=== PATIENT | female | born 1950 | race Caucasian/White ===

== ENCOUNTER → 2021-01-30 12:36 | Outpatient (CLI) | payer MEDICARE, OTHER, SELFPAY ==
--- NOTE | 2021-01-30 12:40 | CT_ITS ---
STUDY: CT LEFT SHOULDER REASON FOR EXAM: Female, 70 years old. PRIMARY OSTEOARTHRITIS,L SHOULDER RADIATION DOSAGE (If Supplied By Facility): CTDIvol = ( 29.55 ) mGy, DLP = ( 643.37 ) mGycm TECHNIQUE: The patient was scanned in a multi detector CT scanner. High resolution transaxial imaging was performed without the administration of intravenous contrast material. Sagittal and coronal images were reconstructed. Individualized dose optimization techniques were used for this CT. COMPARISON: None. FINDINGS: There is severe narrowing of the glenohumeral articulation with bulky osteophyte formation of the medial and inferior aspect of the humeral head as well as several loose bodies of the glenohumeral joint space and cortical spurring glenoid. Prominent enthesopathy of the proximal lateral aspect of the humeral head also noted. No visualized acute fractures. A small glenohumeral joint effusion is present. Normal coracoid process. Normal visualized lateral clavicle. Normal acromioclavicular articulation. There is a Type II morphology (curved), with a neutral orientation. Normal visualized muscles and soft tissue structures. CT/Extremity Upper without Contra IMPRESSION: 1. Severe DJD of the left shoulder joint Electronically Signed: Manuelito Ham MD at 23:50 EDT , Service support ,
== END ==
PROVIDERS: PCP Family Medicine; Referring Provider Specialist; Visit Provider Specialist
DX: M19.012 Primary osteoarthritis, left shoulder (principal)
CPT/HCPCS: 73200

== ENCOUNTER 2022-01-29 12:35 | Emergency (ER) | payer MEDICARE, OTHER, SELFPAY ==
[2022-01-29 12:37] VITALS: BP 134/82; PULSE 84; RESP 16; TEMP 36.2; O2SAT 95; BMI 34.3
--- NOTE | 2022-01-29 12:48 | EDS_ITS ---
HPI History of Present Illness Chief Complaint: Allergic Reaction Informant: patient Onset/Context/Timing Onset: Today Context: Gradual Onset Timing: Continuous Quality: Redness, itching Location: Generalized Worsened by: Nothing Relieved by: Nothing Narrative Narrative: Patient presents with allergic reaction that began today. Patient states she was given a dose of penicillin today at the dentist office. Patient states that while the dentist was working on her teeth she started developing some itching and redness. Patient states this is generalized. Patient denies any difficulty breathing or difficulty swallowing. Patient states she did also get nauseated with it. Patient states she also developed a slight cough. Patient denies any chest pain or palpitations. [facility] Medical History (Updated 01/29/22 @ 14:[address] Yamil Owens DO) HTN (hypertension) Home Medications prednisone 60 mg PO DAILY #15 tablet 01/29/22 [Rx Last Taken Unknown] Allergy/AdvReac Type Severity Reaction Status Date / Time No Known Allergies Allergy Verified 01/29/22 12:36 Surgical History (Updated 01/29/22 @ 12:[address] Yamil Owens DO) Hx of shoulder surgery Social History Smoking Status: Never smoker ROS ROS ED Constitutional Constitutional ED: Denies chills or fever(s) Eyes Eyes: Denies blurry vision or change in vision ENT ENT ED: Denies rhinorrhea or sore throat Cardiovascular Cardiovascular: Denies chest pain or palpitations Respiratory/Chest Respiratory/Chest: Reports cough; Denies dyspnea Gastrointestinal Gastrointestinal: Reports nausea; Denies vomiting Genitourinary Genitourinary ED: Denies dysuria or hematuria Musculoskeletal Musculoskeletal: Denies back pain or neck pain Integumentary Reports rash; Denies abscess Neurologic Neurologic: Denies headache(s) or weakness Allergic/Immunologic Allergic/Immunologic ED: Reports urticaria; Denies mouth swelling or tongue swelling EXAM Physical Exam Const Vital Signs: 01/29/22 12:37 Temperature 97.1 F L Temperature Source Temporal Pulse Rate 84 Respiratory Rate 16 Blood Pressure 134/82 H Blood Pressure Mean 99 Pulse Ox 95 Oxygen Delivery Method Room Air Positive well nourished and well developed General Appearance ED: well developed and NAD HEENT Reports moist mucous membranes Neck supple and no JVD Resp normal respiratory effort and clear to auscultation bilaterally Cardio regular rate, regular rhythm and no murmurs GI normal to inspection, nondistended, normoactive bowel sounds and non-tender Palpation: soft Extremity normal to inspection General Extremety ED: Negative for edema or tenderness General Extremity: Negative for edema Neuro oriented x3, CN's II-XII intact bilaterally and no sensory deficits noted Sensorium / Orientation: alert Motor Exam: strength 5/5 throughout Psych mental status grossly normal Skin Rashes: rashes noted Hives macule Generalized red smooth hives MDM MDM MDM Narrative Medical decision making narrative: Patient was given Benadryl, Pepcid, and Solu- Medrol here. Patient is feeling better on reevaluation. Patient states her itching has resolved. Patient states the erythema is improved. Patient was given a prescription for prednisone. Patient was instructed to follow-up with her primary care physician in 5 to 7 days. Patient understood and was agreeable with the plan. All questions were answered. Discharge Plan Triage Chief Complaint: Allergic Reaction ED Provider: Yamil Owens Dx/Rx/DC Orders Clinical Impression: Allergic reaction caused by a drug Instructions: ED General Allergic Reactions Prescriptions: New prednisone 20 MG tablet 60 mg PO DAILY Qty: 15 RF: 0 Primary Care Provider: Kelvin Matias Referrals: Kelvin Matias MD [Primary Care Provider] - 5-7 Days Disposition Disposition: Home, Self Care
[2022-01-29] MEDS: DiphenhydrAMINE 50 MG/ML Syringe 25 MG IV (13:26)
[2022-01-29] MEDS: MethylPREDNISolone 125 MG/2 ML Vial 60 MG IV (13:27)
[2022-01-29] MEDS: Famotidine 200 MG/20 ML MDV 20 MG in 0.9% Normal Saline (Pres. free 8 ML 300 MG IV (13:44)
[2022-01-29 14:41] VITALS: BP 128/78; PULSE 67; RESP 16; TEMP 36.9; O2SAT 99
== END 2022-01-29 14:52 | disposition home or self-care (01) ==
PROVIDERS: Emergency Provider Emergency Medicine; PCP Family Medicine; Visit Provider Emergency Medicine
DX: T78.40XA Allergy, unspecified, initial encounter (principal); X58.XXXA Exposure to other specified factors, initial encounter
CPT/HCPCS: 96374; 96375; 99284; A4216; J3490

== ENCOUNTER → 2023-02-13 | Outpatient (CLI) | payer MEDICARE, OTHER, SELFPAY ==
--- NOTE | 2023-02-13 14:52 | CT_ITS ---
STUDY: CT SOFT TISSUE NECK WITH CONTRAST REASON FOR EXAM: Female, 72 years old. [employer] RADIATION DOSAGE (If Supplied By Facility): CTDIvol = ( 14.00 ) mGy, DLP = ( 405.64 ) mGycm TECHNIQUE: The patient was scanned in a multi-detector CT scanner. High resolution transaxial imaging was performed following intravenous administration of IV 100mL Isovue-300. Sagittal and coronal images were reconstructed. Individualized dose optimization techniques were used for this CT. COMPARISON: None. FINDINGS: There is a large soft tissue mass involving the right) temporal space extending into the region of the ramus of the right mandible with evidence of a bony destruction. There is also evidence of a enlarged right soft tissue masses suggestive of adenopathy involving the right anterior cervical triangle as well as the perivascular spaces. The masses extend into the right parotid gland. The dominant soft tissue mass in the right infratemporal fossa extending to the region of the right mandibular ramus measures 4 cm x 4.4 cm. Normal visualized nasopharynx. Normal retropharyngeal space. Normal perivertebral space. Normal epiglottis, bilateral vallecula and hypopharynx. The pre-epiglottic and paraglottic adipose spaces are normal. Normal visualized bilateral piriform sinuses, aryepiglottic folds, vocal cords, and arytenoid-cricoid articulations. Normal subglottic trachea. There is a 3.1 cm hypodense nodule in the midportion of the left lobe the thyroid. Normal visualized pulmonary apices. Normal visualized paranasal sinuses. There is multilevel degenerative changes of the cervical spine. CT/Soft Tissue Neck WITH Contrast IMPRESSION: Large soft tissue mass as described involving the right infratemporal region extending into the right side of the neck with destruction of the right mandibular ramus. There is also evidence of a multiple rounded soft tissue masses in the right-sided the neck as described suggestive of metastatic adenopathy. Biopsy recommended. Electronically Signed: Preston Márquez MD at 9:58 EDT ,
[2023-02-13 15:12] LABS: CREATININE FINGERSTICK < 0.9 mg/dL (0.55-1.02); EGFR FINGERSTICK > 60.0000 mL/min (>60)
== END | disposition home or self-care (01) ==
LOC: CT 14:43
PROVIDERS: PCP Family Medicine; Referring Provider Otolaryngology Otolaryngology/Facial Plastic Surgery; Visit Provider Otolaryngology Otolaryngology/Facial Plastic Surgery
DX: K11.5 Sialolithiasis (principal)
CPT/HCPCS: 70491; Q9967; A4216

== ENCOUNTER → 2023-04-03 | Outpatient (CLI) | payer MEDICARE, OTHER, SELFPAY ==
--- NOTE | 2023-04-03 14:34 | ECHOCSONC_ITS ---
Reason For Study: CHEMOTHERAPY Procedure This was a 2D Doppler, Color Flow transthoracic echocardiogram. Myocardial strain analysis was performed in this exam to aid in the assessment of cardiac function. The study was technically difficult. Exam performed in department. Left Ventricle Normal LV size. Left ventricular systolic function is normal. The estimated ejection fraction is 65 %. Stage 1 diastolic dysfunction. No regional wall motion abnormalities noted. Right Ventricle Normal RV size. Normal systolic function. Atria Normal left atrium. Normal right atrium. Mitral Valve There is mild mitral annular calcification. Tricuspid Valve Normal tricuspid valve. Mild tricuspid valve insufficiency. Pulmonary artery systolic pressure is 15 mmHg. Aortic Valve Trisinus/trileaflet aortic valve. Mild focal aortic valve calcification. Pulmonic Valve Normal pulmonic valve. Great Vessels Normal aortic root. Pericardium/Pleural No pericardial effusion. MMode/2D Measurements & Calculations LVIDd: 4.0 cm IVSd: 1.5 cm LVOT diam: 2.0 cm LVIDs: 1.9 cm LVPWd: 0.92 cm LVOT area: 3.1 cm2 RVDd: 3.1 cm FS: 51.2 % Ao root diam: 3.2 cm LAV(MOD-bp): 21.7 ml LVAd ap4: 19.2 cm2 LAV(MOD-bp) Indexed: 12.2 ml/m2 LVLd ap4: 6.3 cm LAV(MOD-sp2): 24.7 ml EDV(MOD-sp4): 47.2 ml LAV(MOD-sp4): 18.0 ml EDV(sp4-el): 49.6 ml LVAs ap4: 9.8 cm2 LVLs ap4: 5.2 cm ESV(MOD-sp4): 15.8 ml ESV(sp4-el): 15.9 ml EF(MOD-sp4): 66.5 % EF(sp4-el): 67.9 % LVAd ap2: 19.8 cm2 SV(MOD-sp4): 31.4 ml SV(MOD-sp2): 32.9 ml LVLd ap2: 6.9 cm EDV(MOD-sp2): 46.0 ml EDV(sp2-el): 48.2 ml LVAs ap2: 9.1 cm2 LVLs ap2: 5.3 cm ESV(MOD-sp2): 13.1 ml ESV(sp2-el): 13.1 ml EF(MOD-sp2): 71.5 % SV(sp4-el): 33.7 ml LA dimension(2D): 3.9 cm LA A4 area: 9.8 cm2 RA A4 area: 10.2 cm2 TAPSE: 1.7 cm Time Measurements MV dec time: 0.27 sec Doppler Measurements & Calculations MV E max jatin: 56.6 cm/sec Lat Peak E' Jatin: 11.0 cm/sec Med Peak E' Jatin: 8.0 cm/sec MV A max jatin: 76.5 cm/sec E/E' lat: 5.1 E/E' med: 7.1 MV E/A: 0.74 Ao V2 max: 143.3 cm/sec LV V1 max: 125.4 cm/sec MV dec slope: 207.9 cm/sec2 Ao max P.2 mmHg LV V1 max P.3 mmHg Ao V2 mean: 97.5 cm/sec LV V1 mean P.8 mmHg Ao mean P.3 mmHg LV V1 mean: 76.7 cm/sec Ao V2 VTI: 25.0 cm LV V1 VTI: 21.5 cm AV (velocity ratio): 0.86 LISHA(I,D): 2.6 cm2 LISHA(V,D): 2.7 cm2 SV(LVOT): 65.7 ml PA V2 max: 92.2 cm/sec TR max jatin: 177.4 cm/sec PA max PG (full): 0.85 mmHg TR max P.6 mmHg ECHO/ONC Echo Complete W/ Contrast Interpretation Summary Normal LV size. Left ventricular systolic function is normal. The estimated ejection fraction is 65 %. There is mild mitral annular calcification. Stage 1 diastolic dysfunction. Pulmonary artery systolic pressure is 15 mmHg. The global longitudinal strain is normal. The global longitudinal strain = -20. 8 % (normal). Ordering Physician: Nancy Segal Referring Physician: MD Kelvin Matias Performed By: Trisha, Deborah, RDCS
== END | disposition home or self-care (01) ==
LOC: CVS 14:31
PROVIDERS: PCP Family Medicine; Referring Provider Internal Medicine Hematology & Oncology; Visit Provider Internal Medicine Hematology & Oncology
DX: Z79.899 Other long term (current) drug therapy (principal); C85.91 Non-Hodgkin lymphoma, unspecified, lymph nodes of head, face, and neck; Z51.81 Encounter for therapeutic drug level monitoring
CPT/HCPCS: 93306; 93356; C8929

== ENCOUNTER 2023-04-15 10:44 | Day surgery (SDC) | payer MEDICARE, OTHER, SELFPAY ==
[2023-04-15] VITALS (7 sets, daily range): BP systolic 84–129; BP diastolic 66–102; PULSE 62–83; RESP 16–18; TEMP 36.7–37; O2SAT 99–100; BMI 30.9
--- NOTE | 2023-04-15 12:20 | HP.PCM_ITS ---
History and Physical Date of Admission: 04/15/23 Date of Service: 04/03/23 MR#: [id number] Acct: [id number] Name: BENJAMIN WADE Rep #: [id number] : 1950 Provider: Dr. Kenzie Castillo MD Age/Sex: 72/F Location: [facility] Status: Signed Intake Vital Signs 03/27/2309:59 04/03/2309:14 Height 5 ft 2 in 5 ft 2 in Weight: 169 lb 2 oz BMI 30.9 BP 123/81 H Blood Pressure Location Rt brachial Position Sitting Respiration 16 Pulse 74 Pulse Source Monitor Temp Source Tympanic Pulse Oximetry (%) 98 Oxygen Delivery Method room air Intake Visit Reasons: PORT PLACEMENT Chief Complaint: port placement Allergies amoxicillin Allergy (Unknown, Verified 04/04/23 08:10) Nausea, lightheadednessPenicillins Allergy (Unknown, Verified 04/04/23 08:10) Nausea, lightheadedness Medications finasteride 5 mg tablet 5 mg PO DAILY 03/26/23 [History Confirmed 04/04/23] hydrochlorothiazide 25 mg tablet 25 mg PO DAILY 03/26/23 [History Confirmed 04/04/23] losartan 50 mg tablet 50 mg PO DAILY 03/26/23 [History Confirmed 04/04/23] biotin 10,000 mcg capsule 10,000 mcg PO DAILY 03/27/23 [History Confirmed 04/04/23] calcium carbonate 1,000 mg-vitamin D3 20 mcg (800 unit) tablet 1 tab PO .QOD 03/27/23 [History Confirmed 04/04/23] clindamycin HCl 300 mg capsule 600 mg PO ONCE PRN SURGERY PROCEDURE 03/27/23 [History Confirmed 04/04/23] cyanocobalamin (vitamin B-12) 1,000 mcg tablet 1,000 mcg PO DAILY 03/27/23 [History Confirmed 04/04/23] iaeqmkrp-dni-bnnww acid 0.4 mg-lycopene 300 mcg-lutein 250 mcg tablet (Complete Multivitamin Adult 50 Plus) 1 tab PO .QOD 03/27/23 [History Confirmed 04/04/23] pyridoxine (vitamin B6) 100 mg tablet (Vitamin B-6) 100 mg PO DAILY 03/27/23 [History Confirmed 04/04/23] [facility] Medical History (Updated 04/04/23 @ 08:20 by Angelica Fuentes) Arthritis Cancer Cystocele, midline Easy bruising Heartburn High cholesterol History of echocardiogram History of pain when walking HTN (hypertension) Lymphoma Mass of right parotid gland Melanoma Non-smoker Parapharyngeal space mass Post-menopausal Postmenopausal atrophic vaginitis Shortness of breath on exertion Urethral caruncle Urgency of urination Uterovaginal prolapse, incomplete Wears glasses Surgical History (Updated 04/04/23 @ 08:20 by Angelica Fuentes) History of surgical removal of skin lesion Hx of colonoscopy Hx of lymph node biopsy Hx of total shoulder replacement Family History Other Colon cancer Emphysema, unspecified Hypertension Lung cancer Social History household members: none Smoking Status: Never smoker alcohol intake: current alcohol intake frequency: holidays/special occasions only Alcohol type: wine substance use type: does not use additional social history: HPI HPI HPI: 72-year-old female presents for port placement due to lymphoma. Plan is for patient to start chemotherapy fairly shortly after getting port placed per Dr. Segal. Patient also states that she would have radiation as well. ROS General General: No weight change, appetite, fatigue, colon cancer, breast cancer or weakness HEENT HEENT: Yes swollen glands; No difficulty swallowing, eye injury, eye surgery or hoarseness Endo Endocrine: No thyroid disease, diabetes mellitus, thyroid cancer, Hair loss, heat intolerance or cold intolerance Skin Skin: No rash or changing moles Breast Breast: No left breast lump, right breast lump, nipple discharge, breast pain, abnormal mammogram, abnormal US or breast enlargement Musc Musculoskeletal: Yes arthritis and gout; No back problems, rheumatoid arthritis or joint pain Cardio Cardiovascular: Yes high blood pressure; No murmur, pacemaker, heart disease, atrial fibrillation, heart attack, heart stent, palpitations, shortness of breat with exertion or chest pain Psych Psychiatric: No depression, anxiety or hearing voices Resp Respiratory: No shortness of breath, No sleep apnea, No cough, No COPD, No asthma, No emphysema and No wheezing Gastro Gastrointestinal: No abdominal pain, No nausea or vomiting, No diarrhea, No constipation, No blood in stool, Yes acid reflux, No hemorrhoids, No ulcers, No gallbladder problem and No black,tarry stools Bryan Hematologic: No blood thinners, No blood disorders, No bleeding, No anemia and No blood clots Neuro Neurologic: No system reviewed and no additional complaints, except as documented, No as per HPI, No abnormal gait, No abnormal hearing, No abnormal movements, No abnormal speech, No behavioral changes, No burning sensations, No confusion, No convulsions, No disequilibrium, No dizziness, No localized weakness, No frequent falls, No headache(s), No lack of coordination, No loss of vision, No memory loss, No numbness, No other visual disturbances, No radicular pain, No restless legs, No sensory deficit, No syncope, No tingling, No tremor(s), No weakness and No other Exam Const General: cooperative, comfortable and no acute distress Neck Other: Right neck incision well-healed Chest Other: Palpation of bilateral upper chest normal Resp Effort & Inspection: normal respiratory effort Cardio Rate: regular rate Assessment and Plan Assessment and Plan (1) Encounter for insertion of tunneled central venous catheter (CVC) with port: Status: Acute (2) Lymphoma: Status: Acute Plan I have discussed above with the patient- Port-a-Cath placement. Left possible right IJ Patient has been counseled as to the risks/benefits of the procedure. I have explained the risks of the surgery, including but not limited to: infection, bleeding, injury to any blood vessels/nerves, injury to lungs (such as pneumothorax or hemothorax and need for chest tube), not having any access, nonfunctioning of port due to thrombosis, infection of port, etc. the patient understands and agrees to proceed. I have answered all the patient's questions to the patient?s satisfaction and the patient has no further questions. Kenzie Castillo M.D. Pager: [phone] [facility] [address] [place] [address], [facility], [address] [place] [address] Office: [phone] Coding Level of Care Code Off vis,new,level 3 Diagnoses Encounter for insertion of tunneled central venous catheter (CVC) with port Z45.2 Lymphoma C85.90 04/04/23 0909 <Electronically signed by Kenzie Castillo MD> Date Kenzie Castillo MD
[2023-04-15] MEDS: Clindamycin 900 MG/50 ML BAG 75 MG IV (12:30)
[2023-04-15] MEDS: Lidocaine 1% /Epi 1:100 (20ml) 20 ML Vial (12:53)
[2023-04-15] MEDS: Bupivacaine Mpf 0.5% 30 ML VIAL (12:53)
--- NOTE | 2023-04-15 13:27 | PCM.OPRPT ---
Report of Operation Date of Procedure: 04/15/23 Pre-Operative Diagnosis: Z45.2, lymphoma Post-Operative Diagnosis: same Surgery/Procedure Performed:: 1. Insert of left IJ Port-A-Cath Use of fluoroscopy Use of ultrasound Surgeon: Kenzie Castillo Type of Anesthesia: General/Supplemental Anesthesiologist: Demario Barakat Special Medications: Clinda 900 mg IV x1 Specimen's removed: None Estimated Blood Loss (mL): < 10 cc Description of Procedure: After informed consent was given, the patient was brought to the operating room and placed in the supine position. Appropriate time out protocol was followed. Patient was then given IV conscious sedation for anesthesia. The patient's left upper chest and neck were then prepped with a surgical skin preparation and sterile surgical drapes were placed. After proper landmarks were ascertained, the skin at the upper left chest area was then infiltrated with 1:1 mixture of 1% lidocaine with epinephrine and 0.5% marcaine. A needle trocar was then inserted into the left internal jugular vein with ultrasound guidance-multiple vessels were viewed with u/s and the left IJ was chosen-- and there was good aspiration of venous blood. A wire was then threaded into the needle trocar and this was visualized under fluoroscopy to ensure that the wire was in the superior vena cava. Once this was done, then the needle trocar was removed. A small skin ismael was made with an 11 blade knife at the wire entrance site. The dilator with the introducer sheath attached was then placed over the wire into the left internal jugular vein via the Seldinger technique and this was visualized under fluoroscopy. The dilator and sheath were in proper position as visualized by fluoroscopy. A subcutaneous pocket was then created caudad to the catheter insertion site. A transverse skin incision was made after the skin and subcutaneous tissues were infiltrated with local anesthetic. Blunt dissection was then used to create a space large enough for placement of the subcutaneous port. The catheter was then tunneled into the subcutaneous pocket. The wire and dilator were then removed. The catheter was then threaded into the introducer sheath and was positioned with its tip at the junction of the superior vena cava and the right atrium as visualized under fluoroscopy. The excess catheter was transected. The catheter was then attached to the subcutaneous port using manufacturers guidelines. The catheter was flushed with a heparin saline mixture prior to placement. Hemostasis was carefully controlled with electrocautery. The port was sutured to the subcutaneous fascia using 2-0 Vicryl suture at two sites. The port was then placed in the subcutaneous pocket. The incision were reapproximated with interrupted subdermal 3-0 vicryl sutures. The skin was reapproximated with 3-0 nylon suture in a interrupted fashion. Steristrips were used for reinforcement of the skin closure at IJ insertion site and a sterile opsite dressings were applied. The patient tolerated the procedure well. Grafts/Implants Used: Bard PowerPort isp M.R.I. 6Fr Lot [id number] Complications none
--- NOTE | 2023-04-15 13:30 | RAD_ITS ---
STUDY: X-RAY CHEST REASON FOR EXAM: Female, 72 years old. Port -- pacu TECHNIQUE: Single AP portable view of the chest. COMPARISON: None. FINDINGS: EKG electrodes are seen. A left-sided Port-A-Cath has been placed with the tip in the midportion of the superior vena cava. Minimal increasing markings at the left lung base suggestive of either linear atelectasis and/or scarring. There is no demonstrated pleural abnormality. Normal size heart. Normal mediastinum and sheree. Normal visualized pulmonary arteries. Normal visualized aortic arch and descending thoracic aorta. There are diffuse degenerative changes of the visualized thoracic spine. The patient is status post left reverse shoulder replacement. Surgical clips are seen in the inferior aspect of the right cervical region. There is no demonstrated abnormality of the visualized soft tissue structures of the upper abdomen. RAD/Chest 1 View (Portable) IMPRESSION: The tip of the left portacatheter is in the midportion of the superior vena cava. Mild increased linear markings at the left lung base suggestive of linear atelectasis and/or scarring. Electronically Signed: Preston Márquez MD at 14:21 EDT ,
--- NOTE | 2023-04-15 14:10 | DCINST_ITS ---
Discharge Instructions Procedure Port-A-Cath Diet Discharge Diet: Light diet - advance as tolerated Activity May shower in (days): 5 (Keep port site clean and dry x5 days. Neck incision okay to get wet after 1 day. Okay to lower shower and upper sponge bath. OR okay to taper off port site with a Ziploc bag to shower) Lifting Restrictions: No lifting > 15 pounds for 3 days with the arm on the side of the port Dressing / Incision Call your doctor if your incision/area has: Continuous Slow Oozing, Sudden Increased Bleeding, Increased Pain/ Swelling, Increased Redness, Foul Smelling Discharge and Swelling at the incision site Call your doctor if you observe: Fever of 101 or Higher Change Dressing in: 2 days (2-3 days- port site; ok to remove neck opsite in 1 day) Follow Up Care Please Follow Up With: Kenzie Castillo MD When: In 10 days for permanent suture removal?call office for appointment Test Results: Test results from this visit will be discussed in further detail at your follow- up appointment, if applicable. Discharge Plan Admission Attending Provider: Kenzie Castillo Primary Care Provider: Kelvin Matias Discharge Orders/Prescriptions Prescriptions: New tramadol 50 mg tablet 50 mg PO Q6H PRN (Reason: pain) Qty: 3 0RF Continued finasteride 5 mg tablet 5 mg PO DAILY hydrochlorothiazide 25 mg tablet 25 mg PO DAILY losartan 50 mg tablet 50 mg PO DAILY biotin 10,000 mcg capsule 10,000 mcg PO DAILY Complete MV Adult 50 Plus 0.4 mg-300 mcg- 250 mcg tablet 1 tab PO .QOD calcium carbonate-vitamin D3 1,000 mg-20 mcg (800 unit) tablet 1 tab PO .QOD ondansetron 8 mg tablet,disintegrating 8 mg PO Q8H PRN (Reason: nausea and vomiting) Qty: 30 2RF prednisone 20 mg tablet 100 mg PO .COMPLEX Qty: 25 5RF Rx Instructions: Take 100 mg orally on days 1-5 of chemotherapy cycle with food allopurinol 300 mg tablet 300 mg PO DAILY Qty: 30 0RF lidocaine-prilocaine 2.5-2.5 % cream 1 applic topical ONCE PRN (Reason: port access) 30 Days Qty: 30 2RF acyclovir 400 mg tablet 400 mg PO BID Qty: 60 1RF Referrals / Follow Up: Kelvin Matias MD [Primary Care Provider] - Disposition Disposition (needs filled in before D/C Order can be placed): Home, Self Care
== END 2023-04-15 14:54 | disposition home or self-care (01) ==
LOC: SDC 10:46 → AC 10:47
PROVIDERS: PCP Family Medicine; Referring Provider Surgery; Visit Provider Surgery
PROC: (CPT 36561; principal; 2023-04-15 12:15)
DX: Z45.2 Encounter for adjustment and management of vascular access device (principal); C85.90 Non-Hodgkin lymphoma, unspecified, unspecified site; I10 Essential (primary) hypertension; Z80.0 Family history of malignant neoplasm of digestive organs; Z79.899 Other long term (current) drug therapy
CPT/HCPCS: 36561; 00532; 71045; 77001; J7120; C1769; J2405

== ENCOUNTER → 2023-05-24 | Outpatient (CLI) | payer MEDICARE, OTHER, SELFPAY ==
--- NOTE | 2023-05-24 10:20 | RAD_ITS ---
CLINICAL HISTORY: Female, 72 years old. Assessment of the left portacatheter. PROCEDURE: Portogram. FLUOROSCOPY TIME (if supplied): (31 seconds) minutes/seconds. 20.79 mGy. 4 spot images were obtained. STERILE BARRIER TECHNIQUE: The following sterile barrier precautions were used during the procedure: hand hygiene; use of 2% chlorhexidine aseptic; use of a cap, mask, sterile gown, sterile gloves, sterile full body drape, and a large sterile sheet. TECHNIQUE: Nonionic contrast was injected into the indwelling portacatheter. The catheter is patent. Free flow of contrast is seen in the superior vena cava. # of Images: 4 RAD/Con Inj Lior Eval CVP Inc Fluro IMPRESSION: Normal portogram. Electronically Signed: Preston Márquez MD at 10:52 EDT ,
[2023-05-24] MEDS: 0.9% Saline Lock 10 ML Syringe IV (10:42)
== END | disposition home or self-care (01) ==
LOC: RAD 10:13
PROVIDERS: PCP Family Medicine; Referring Provider Nurse Practitioner Family; Visit Provider Nurse Practitioner Family
DX: Z95.828 Presence of other vascular implants and grafts (principal); C85.90 Non-Hodgkin lymphoma, unspecified, unspecified site
CPT/HCPCS: 36598; A4216

== ENCOUNTER → 2023-07-01 | Outpatient (CLI) | payer MEDICARE, OTHER, SELFPAY ==
--- NOTE | 2023-07-01 14:16 | MRI_ITS ---
EXAM: MR NECK WITHOUT AND WITH INTRAVENOUS CONTRAST CLINICAL INDICATION: compare to prior MRI, eval for extent of disease -- complete response on PET TECHNIQUE: Multiplanar and multisequence MR images of the neck without and with intravenous contrast. CONTRAST: Clariscan 15ml iv COMPARISON: MR Neck dated March 12 2023 FINDINGS: NASOPHARYNX: Normal. OROPHARYNX: Normal. No significant tonsillar enlargement. No peritonsillar abscess. HYPOPHARYNX: Normal. LARYNX: Normal. Normal epiglottis. RETROPHARYNGEAL SPACE: Normal. SUBMANDIBULAR/PAROTID GLANDS: Parotid and submandibular glands are normal. THYROID: Thyroid bed not evaluated on this exam. BONES/JOINTS: Normal. SOFT TISSUES: There is residual edema involving the right health care analyst space which may represent posttreatment change. VASCULATURE: Normal. LYMPH NODES: Previously noted enlarged cervical lymph nodes on the right involving multiple levels of completely resolved when compared to prior study. MRI/Orbit Face Neck W/WO Contrast IMPRESSION: Complete resolution of the right-sided cervical lymphadenopathy. Mild residual edematous change of the right health care analyst space consistent with posttreatment changes. Electronically Signed: Sohail Green MD at 13:22 EDT ,
[2023-07-01] MEDS: 0.9% Saline Lock 10 ML Syringe IV (15:49)
== END | disposition home or self-care (01) ==
LOC: MRI 14:11
PROVIDERS: PCP Family Medicine; Visit Provider Student in an Organized Health Care Education/Training Program
DX: C85.90 Non-Hodgkin lymphoma, unspecified, unspecified site (principal)
CPT/HCPCS: 70543; A9575; A4216

== ENCOUNTER → 2024-06-24 | Outpatient (CLI) | payer MEDICARE, OTHER, SELFPAY ==
--- NOTE | 2024-06-24 07:16 | MRI_ITS ---
EXAM: MR NECK WITHOUT AND WITH INTRAVENOUS CONTRAST CLINICAL INDICATION: F/U HEAD AND NECK LYMPHOMA TECHNIQUE: Multiplanar and multisequence MR images of the neck without and with intravenous contrast. CONTRAST: IV 14ml Clariscan COMPARISON: Abdomen CT soft tissue neck 02/13/2023, MR Neck dated 07/01/2023 and 03/12/2023 FINDINGS: NASOPHARYNX: Normal. OROPHARYNX: Normal. No significant tonsillar enlargement. No peritonsillar abscess. HYPOPHARYNX: Normal. LARYNX: Normal. Normal epiglottis. RETROPHARYNGEAL SPACE: Normal. SUBMANDIBULAR/PAROTID GLANDS: Normal. Glands are normal in size. THYROID: Normal. No enlarged or calcified nodules. BONES/JOINTS: Residual bone marrow edema associated with contrast enhancement within the right mandibular condyle which may represent posttreatment change. No acute fracture. SOFT TISSUES: No evidence of residual or recurrent soft tissue mass involving the right customer experience manager space. Resolution of the edema previously noted within the right customer experience manager space. VASCULATURE: Normal. LYMPH NODES: Normal. No residual cervical lymphadenopathy. MRI/Orbit Face Neck W/WO Contrast IMPRESSION: 1. No evidence of residual or recurrent soft tissue neoplasm. 2. Stable bony findings of the right mandible likely related to posttreatment change. Electronically Signed: Sohail Green MD at 10:52 EDT ,
== END | disposition home or self-care (01) ==
LOC: MRI 07:14
PROVIDERS: PCP Family Medicine; Referring Provider Internal Medicine Hematology & Oncology; Visit Provider Internal Medicine Hematology & Oncology
DX: C82.11 Follicular lymphoma grade II, lymph nodes of head, face, and neck (principal)
CPT/HCPCS: 70543; A9575

== ENCOUNTER 2024-10-13 13:55 | Emergency (ER) | payer MEDICARE, OTHER, SELFPAY ==
[2024-10-13 13:55] VITALS: BP 127/77; PULSE 101; RESP 16; TEMP 37.2; O2SAT 100; BMI 25.9
[2024-10-13 14:43] LABS: Absolute Lymphocyte Count 2.42 X10^3/uL (0.83-4.51); Absolute Neutrophil Count 9.3 X10^3/uL (2.0-7.7); Basophil# 0.08 X10^3/uL; Basophil% 0.6 % (0-1); Eosinophil# 0.18 X10^3/uL; Eosinophils% 1.3 % (0-5); Hematocrit 43.3 % (37-47); Hemoglobin 15.1 g/dL (12.0-15.0); Lymphocyte # 2.42 X10^3/ul (0.83-4.51); Lymphocyte % 17.7 % (19-41); Mean Corp Hgb Conc 34.9 g/dL (32-36); Mean Corpuscular Hgb 34.2 pg (27.0-32.0); Mean Corpuscular Volume 98.2 fL (81-99); Monocyte# 1.47 X10^3/uL; Monocyte% 10.8 % (0-10); NRBC Flagged by Analyzer 0 % (0-5); Neutrophil # 9.28 X10^3/uL (2.7-7.7); Neutrophil % 67.8 % (47-70); Platelet Count 325 K/mm3 (150-450); RBC Distribution Width CV 14.6 % (11.6-14.6); RBC Distribution Width SD 52.3 fl (35.1-43.9); Red Blood Count 4.41 M/mm3 (4.2-5.4); White Blood Count 13.7 K/mm3 (4.4-11.0)
--- NOTE | 2024-10-13 15:14 | EDS_ITS ---
HPI HPI - GI History of Present Illness Chief Complaint: Diarrhea Informant: patient and family Narrative Narrative: 74-year-old female presenting to the emergency room with the chief complaint of diarrhea. Patient states for the past 3 weeks she has had diarrhea. Occasionally it will be less some days more. She notes that today she had some mucus in the stool. She saw primary care once and then again today. She states that stool studies were sent today. She is getting scheduled for a colonoscopy. She states they were concerned for dehydration as she has lost 10 pounds during this treatment. She is about a year year and a half out from a diagnosis of non-Hodgkin's lymphoma treatment with radiation and chemotherapy with patient [facility]. She denies any fevers. No recent travel or antibiotics. Nausea and vomiting has been minimal but she does note that she had some vomiting today. She denies any significant abdominal pain. No history of pancreatitis or biliary disease. No prior abdominal surgeries. She notes chronic dry mouth that has been worse (status post radiation) [facility] Medical History Non-Hodgkin lymphoma, unspecified, unspecified site Non-Hodgkin lymphoma, unspecified, lymph nodes of head, face, and neck Lymphoma of lymph nodes of face Port-A-Cath in place Encounter for chemotherapy management Hypokalemia Alopecia Encounter for education Wears glasses Post-menopausal Cancer Easy bruising Heartburn Shortness of breath on exertion Non-smoker History of pain when walking History of echocardiogram Lymphoma Uterovaginal prolapse, incomplete Urethral caruncle Urgency of urination Postmenopausal atrophic vaginitis Cystocele, midline Mass of right parotid gland Arthritis Parapharyngeal space mass Melanoma High cholesterol HTN (hypertension) Home Medications ?Medication ?Instructions ?Recorded ?Last Taken ?Type finasteride 5 mg tablet 5 mg PO DAILY 03/26/23 Unknown History losartan 50 mg tablet 50 mg PO DAILY 03/26/23 04/15/23 History calcium 1,000 mg (as 1 tab PO .QOD 03/27/23 Unknown History carbonate)-vitamin D3 20 mcg (800 unit) tablet [id number] acid 0.4 1 tab PO .QOD 03/27/23 Unknown History mg-lycopene 300 mcg-lutein 250 mcg tablet (Complete Multivitamin Adult 50 Plus) hydrochlorothiazide 25 mg tablet 25 mg PO Q OTHER DAY 03/12/24 Unknown History minoxidil 2.5 mg tablet 2.5 mg PO QDAY 10/08/24 Unknown History potassium chloride 20 mEq 20 meq PO BID #6 tabs 10/08/24 Unknown Rx tablet,extended release(part/cryst) Allergy/AdvReac Type Severity Reaction Status Date / Time amoxicillin Allergy Unknown Nausea, Verified 10/13/24 13:55 lightheadedness Penicillins Allergy Unknown Nausea, Verified 10/13/24 13:55 lightheadedness Family History Other Colon cancer Emphysema, unspecified Hypertension Lung cancer Surgical History Hx of colonoscopy Hx of lymph node biopsy Hx of total shoulder replacement History of surgical removal of skin lesion Social History household members: none Smoking Status: Never smoker alcohol intake: current alcohol intake frequency: holidays/special occasions only Alcohol type: wine substance use type: does not use additional social history: ROS ROS ED Constitutional Constitutional ED: Denies chills, fever(s) or weight loss Eyes Eyes: Denies change in vision or diplopia ENT ENT ED: Denies ear pain, rhinorrhea or sore throat Cardiovascular Cardiovascular: Denies chest pain, orthopnea, palpitations or racing heartbeat Respiratory/Chest Respiratory/Chest: Denies cough, dyspnea or orthopnea Gastrointestinal Gastrointestinal: Reports diarrhea, nausea and vomiting; Denies abdominal pain Genitourinary Genitourinary ED: Reports other Details: Decreased urinary output ; Denies dysuria, hematuria or urinary frequency Musculoskeletal Musculoskeletal: Denies arthralgias or myalgias Integumentary Denies abscess or rash Neurologic Neurologic: Denies headache(s) or weakness Psychiatric Psychiatric: Denies anxiety, depression, suicidal ideation or suicidal thoughts Endocrine Endocrinology: Denies polydipsia, polyphagia or polyuria Allergic/Immunologic Allergic/Immunologic ED: Denies mouth swelling, tongue swelling or urticaria EXAM Physical Exam Const Vital Signs: 10/13/24 13:55 10/13/24 15:55 10/13/24 17:00 Temperature 98.9 F Temperature Source Oral Pulse Rate 101 H 78 Respiratory Rate 16 Blood Pressure 127/77 H 112/89 H 130/86 H Blood Pressure Mean 93 96 100 Pulse Ox 100 96 Oxygen Delivery Method Room Air Positive well nourished and well developed General Appearance ED: well developed and NAD HEENT Reports normocephalic, head/scalp atraumatic and dry mucous membranes Mouth ED: Yes dry mucous membranes Mouth: dry mucous membranes Eyes PERRL and EOMs intact bilaterally Neck no lymphadenopathy, supple and no JVD Resp normal respiratory effort and clear to auscultation bilaterally Cardio regular rate, regular rhythm and no murmurs GI normal to inspection, nondistended, normoactive bowel sounds and non-tender Palpation: soft Back/Spine no CVA tenderness and normal ROM Extremity normal to inspection General Extremety ED: Negative for edema General Extremity: Negative for edema Neuro oriented x3 and CN's II-XII intact bilaterally Sensorium / Orientation: alert Motor Exam: strength 5/5 throughout Psych mental status grossly normal Mood & Affect: Negative for depressed or tearful Skin no rashes or lesions noted and no wounds MDM MDM MDM Narrative Medical decision making narrative: Differential diagnosis includes but not limited to dehydration electrolyte abnormality acute kidney injury colitis infectious diarrhea viral syndrome IV established patient received IV fluids. White count returns at 13.7 with 17.7 lymphocytes 10.8 monocytes 67.8 neutrophils. Hemoglobin is 15.1 platelet count of 325. Urinalysis was delayed in lab but shows no overt infection. Patient is scheduled for a colonoscopy in 2 weeks. She had stool studies sent today. Clinically I do not see a reason to admit her into the hospital. Heart rate is down to 78. I believe she can be discharged home. We talked about her diet with family. History & Record Review Discussion w/independent historian: Patient and Family Lab Data Attestation: I reviewed the patient's lab results. Labs: Laboratory Results - last 24 hr 10/13/24 10/13/24 10/13/24 14:18 15:43 16:52 WBC 13.7 H RBC 4.41 Hgb 15.1 H Hct 43.3 MCV 98.2 MCH 34.2 H MCHC 34.9 RDW Std Deviation 52.3 H RDW Coeff of Jace 14.6 Plt Count 325 MPV 10.0 Immature Gran % (Auto) 1.800 H Neut % (Auto) 67.8 Lymph % (Auto) 17.7 L Whiteside % (Auto) 10.8 H Eos % (Auto) 1.3 Baso % (Auto) 0.6 Absolute Neuts (auto) 9.3 H Absolute Lymphs (auto) 2.42 Nucleated RBC % 0 Sodium Cancelled 137 Potassium Cancelled 3.9 Chloride Cancelled 106 Carbon Dioxide Cancelled 20.0 L Anion Gap Cancelled 10 BUN Cancelled 30 H Creatinine Cancelled 1.14 H Estim Creat Clear Calc Cancelled 38.15 Est GFR (MDRD) Af Amer Cancelled 60 Est GFR (MDRD) Non-Af Cancelled 50 L BUN/Creatinine Ratio Cancelled 26.3 H Glucose Cancelled 101 Calcium Cancelled 9.6 Total Bilirubin Cancelled 2.40 H AST Cancelled 29 ALT Cancelled 25 Alkaline Phosphatase Cancelled 75 Total Protein Cancelled 7.0 Albumin Cancelled 3.6 Globulin Cancelled 3.4 Albumin/Globulin Ratio Cancelled 1.1 Urine Color Yellow Urine Clarity Clear Urine pH 5.0 Ur Specific [place]gil 1.015 Urine Protein 30 H Urine Glucose (UA) Normal Urine Ketones 5 H Urine Occult Blood 25 H Urine Nitrite Negative Urine Bilirubin Negative Urine Urobilinogen Normal Ur Leukocyte Esterase 100 H Urine RBC 10-25 SEEN Urine WBC 10-25 SEEN Ur Squamous Epith Cells 0-5 SEEN Ur Transition Epith Cell 0-5 SEEN Calcium Oxalate Crystal RARE Urine Bacteria RARE Hyaline Casts 0-5 SEEN Urine Mucus RARE Discharge Plan Triage Chief Complaint: Diarrhea ED Provider: Danny Ang Dx/Rx/DC Orders Clinical Impression: Diarrhea, Dehydration Instructions: ED Diarrhea, Unknown Cause Prescriptions: No Action finasteride 5 mg tablet 5 mg PO DAILY losartan 50 mg tablet 50 mg PO DAILY Complete MV Adult 50 Plus 0.4 mg-300 mcg- 250 mcg tablet 1 tab PO .QOD calcium carbonate-vitamin D3 1,000 mg-20 mcg (800 unit) tablet 1 tab PO .QOD hydrochlorothiazide 25 mg tablet 25 mg PO Q OTHER DAY Rx Instructions: Taking 3 times per week minoxidil 2.5 mg tablet 2.5 mg PO QDAY potassium chloride 20 mEq tablet,ER particles/crystals 20 meq PO BID Qty: 6 0RF Primary Care Provider: Kelvin Matias Referrals: Kelvin Matias MD [Primary Care Provider] - Keep Derek appointment Print Language: Nepali Disposition Disposition: Home, Self Care Discharge Date/Time: 10/13/24 19:00
[2024-10-13] MEDS: 0.9% Normal Saline (1000mL) 1,000 ML 999 ML IV ×2 (15:19→16:30)
[2024-10-13 15:55] VITALS: BP 112/89
[2024-10-13 16:29] LABS: ALB/GLOB Ratio 1.1 RATIO (0.9-2.4); AST(SGOT) 29 U/L (15-37); Alanine Aminotransfer ALT/SGPT 25 U/L (13-56); Albumin, Serum 3.6 g/dL (3.2-5.0); Alkaline Phosphatase 75 U/L (45-117); Anion Gap 10 (5-15); BUN 30 mg/dL (7-18); BUN/Creat Ratio 26.3 RATIO (10-20); Calcium,Total 9.6 mg/dL (8.5-10.1); Chloride 106 mmol/L (98-107); Creatinine, Serum 1.14 mg/dL (0.55-1.02); EST Glomerular Filtration Rate 50 mL/min (>60); Est Glom Filt Rate - Afr Amer 60 mL/min (>60); Estimated Creatinine Clearance 38.15 ml/min; Globulin 3.4 g/dL (2.2-4.2); Glucose 101 mg/dL (74-106); Potassium 3.9 mmol/L (3.5-5.1); Sodium Level 137 mmol/L (136-145)
[2024-10-13 17:00] VITALS: BP 130/86; PULSE 78; O2SAT 96
[2024-10-13 17:12] LABS: Color, Urine Yellow (Yellow); Glucose, Dipstick Normal (Normal); Ketone-Dipstick 5 mg/dl (Negative); Leukocyte Esterase-Dipstick 100 /ul (Negative); Nitrite-Dipstick Negative (Negative); Occult Blood-Urine 25 /ul (Negative); Protein-Dipstick 30 mg/dl (Negative); Specific Gravity, Urine 1.015 (1.002-1.030); Urine Bilirubin Dipstick Negative (Negative); Urine Clarity Clear (Clear); Urine Urobilinogen Normal (Normal)
[2024-10-13 18:15] LABS: Hyaline Cast 0-5 SEEN /lpf (0-5)
[2024-10-13 18:17] LABS: White Blood Cells 10-25 SEEN /hpf (0-5)
[2024-10-13 18:18] LABS: Red Blood Cells-Urine 10-25 SEEN /hpf (0-5)
[2024-10-13 18:19] LABS: Mucous, Urine RARE /hpf (<or=2+); Squamous Epithelial Cells - UA 0-5 SEEN /hpf (5-10); Transitional Epithelial - Ur 0-5 SEEN /hpf (0-5)
[2024-10-13 18:21] LABS: Bacteria RARE /hpf (None Seen); Calcium Oxalate Crystals Ur RARE /hpf (<or=2+)
== END 2024-10-13 19:00 | disposition home or self-care (01) ==
PROVIDERS: Emergency Provider Emergency Medicine; PCP Family Medicine; Visit Provider Emergency Medicine
DX: R19.7 Diarrhea, unspecified (principal); C85.90 Non-Hodgkin lymphoma, unspecified, unspecified site; E86.0 Dehydration
CPT/HCPCS: 80053; 81001; 85025; 96360; 99282; A4216

== ENCOUNTER → 2024-11-09 | Outpatient (CLI) | payer MEDICARE, OTHER, SELFPAY ==
[2024-11-11 15:08] LABS: Immunoglobulin A 140 mg/dL (64-422); t-Transglutaminase IgA <2 U/mL (0-3)
[2024-11-15 02:06] LABS: Beef <0.10 kU/L (Class 0); Chocolate <0.10 kU/L (Class 0); Codfish <0.10 kU/L (Class 0); Corn <0.10 kU/L (Class 0); Egg, Whole <0.10 kU/L (Class 0); Milk (Cow) <0.10 kU/L (Class 0); Mussels <0.10 kU/L (Class 0); Peanut <0.10 kU/L (Class 0); Pork <0.10 kU/L (Class 0); Salmon <0.10 kU/L (Class 0); Shrimp <0.10 kU/L (Class 0); Soybean <0.10 kU/L (Class 0); Tuna <0.10 kU/L (Class 0); Wheat <0.10 kU/L (Class 0)
== END | disposition home or self-care (01) ==
PROVIDERS: PCP Family Medicine; Referring Provider Nurse Practitioner Acute Care; Visit Provider Nurse Practitioner Acute Care
DX: R19.7 Diarrhea, unspecified (principal)
CPT/HCPCS: 36415; 82784; 83516; 86003; 86005

== ENCOUNTER → 2024-11-12 | Outpatient (CLI) | payer MEDICARE, OTHER, SELFPAY ==
[2024-11-14 03:07] LABS: Pancreatic Elastase, Fecal > 800 (>200)
[2024-11-15 00:07] LABS: Calprotectin, Stool 55 ug/g (0-120)
== END | disposition home or self-care (01) ==
LOC: LABSPEC 11:03
PROVIDERS: PCP Family Medicine; Referring Provider Nurse Practitioner Acute Care; Visit Provider Nurse Practitioner Acute Care
DX: R19.7 Diarrhea, unspecified (principal)
CPT/HCPCS: 82653; 83993; 87493

== ENCOUNTER → 2025-06-04 | Outpatient (CLI) | payer MEDICARE, OTHER, SELFPAY ==
--- NOTE | 2025-06-04 10:59 | MRI_ITS ---
PROCEDURE: ORBIT FACE NECK W/WO CONTRAST 06/04/2025 REASON FOR EXAM: F/U HEAD NECK NHL TECHNIQUE: Procedure Code: [id number] Modality: MR Procedure: ORBIT FACE NECK W/WO CONTRAST Multiplanar and multisequence images were obtained. CONTRAST: Clariscan VOLUME: 40 mL COMPARISON: MRI June 24, 2024. FINDINGS: NASOPHARYNX: Unremarkable. OROPHARYNX: Unremarkable. LARYNX: Unremarkable. RETROPHARYNGEAL SPACE: Unremarkable. SUBMANDIBULAR/PAROTID GLANDS: Unremarkable. THYROID: Unremarkable. BONES/JOINTS: Similar bone marrow edema associated with contrast enhancement within the mandible may represent posttreatment change. No acute fracture. SOFT TISSUES: No evidence of residual or recurrent soft tissue mass VASCULATURE: Unremarkable. LYMPH NODES: No cervical lymphadenopathy. MRI/Orbit Face Neck W/WO Contrast IMPRESSION: No evidence of residual or recurrent soft tissue neoplasm. Similar bony findings of the right mandible likely related to posttreatment saqib nge. Reading Location: [id number]
== END | disposition home or self-care (01) ==
LOC: MRI 10:51
PROVIDERS: PCP Family Medicine; Referring Provider Internal Medicine Hematology & Oncology; Visit Provider Internal Medicine Hematology & Oncology
DX: C85.91 Non-Hodgkin lymphoma, unspecified, lymph nodes of head, face, and neck (principal)
CPT/HCPCS: 70543; A9575